=== PATIENT | female | born 1985 | race African-American/Black ===

== ENCOUNTER 2018-11-04 21:35 | Emergency (ER) | payer OTHER ==
[~2018-11-04] VITALS: Ht 162.6 cm; Wt 83.9 kg
[2018-11-04 21:55] VITALS: Ht 162.6 cm; Wt 83.9 kg
[2018-11-04 23:22] VITALS: BP 134/95
== END 2018-11-04 23:22 | disposition home or self-care (01) ==
LOC: ED 21:35
DX: S13.4XXA Sprain of ligaments of cervical spine, initial encounter (principal); Z88.1 Allergy status to other antibiotic agents; X58.XXXA Exposure to other specified factors, initial encounter; Y93.89 Activity, other specified; Y92.89 Other specified places as the place of occurrence of the external cause; Y99.8 Other external cause status
CPT/HCPCS: J1885